=== PATIENT | male | born 1965 | race Caucasian/White ===

== ENCOUNTER 2016-05-18 16:59 | Inpatient (IN) | payer BC ==
[2016-05-18] MEDS ORDERED: Sodium Chloride 0.9% 10 ML Syringe FLUSH PRN (18:46)
[2016-05-18] MEDS ORDERED: Ondansetron 4 MG/2 ML SDV IV PRN (18:46)
--- NOTE | 2016-05-18 18:46 | PCM.HP ---
H&P History of Present Illness - General Date of Service: 05/18/16 Source of Information: Patient History Limitations: Reports: No limitations - History of Present Illness Initial Comments - Free Text/Narative: This is a 51-year-old male patient is having dyspnea on exertion. This is been going on for about 2-3 weeks. He initially had a syncopal episode and was seen in the ER. He was diagnosed with pneumonia and then sent home on Levaquin for 10 days. He followed up with Dr. Barrera and some diarrhea. He states his breathing was now better. He saw Dr. Mendoza today and his hemoglobin of 6.9. Patient denies chest pain. He states he has a history of colitis and had a colonoscopy 2 years ago. He states he has had some very dark stools but no melena. He states he also has some pain in his right upper quadrant at times. Food makes it feel better. He takes ibuprofen, Aleve and Tylenol rotating every day for arthritis. Denies Pain Score (Numeric/FACES): 0 - Related Data Allergies/Adverse Reactions: Allergies Allergy/AdvReac Type Severity Reaction Status Date / Time erythromycin base Allergy Fever Verified 06/07/14 19:51 Home Medications: Home Meds Levofloxacin [Levaquin] 500 mg PO Q24H #9 tablet 04/19/16 [Rx] Past Medical History HEENT History: Reports: None Cardiovascular History: Reports: None Respiratory History: Reports: Sleep apnea Gastrointestinal History: Reports: Other (see below) Other Gastrointestinal History: Hx: Colitis Genitourinary History: Reports: None Musculoskeletal History: Reports: Arthritis Endocrine/Metabolic History: Reports: Obesity/BMI 30+ - Past Surgical History Head Surgeries/Procedures: Reports: None HEENT Surgical History: Reports: Adenoidectomy Respiratory Surgical History: Reports: None GI Surgical History: Reports: Colonoscopy Male Surgical History: Reports: Vasectomy Endocrine Surgical History: Reports: None Musculoskeletal Surgical History: Reports: None Dermatological Surgical History: Reports: None Social & Family History - Family History Cardiac: Reports: High cholesterol Musculoskeletal: Reports: Arthritis Oncologic: Reports: Leukemia - Tobacco Use Smoking Status *Q: Never Smoker Second Hand Smoke Exposure: No - Caffeine Use Caffeine Use: Reports: Coffee - Alcohol Use Days Per Week of Alcohol Use: 1 Number of Drinks Per Day: 1 Total Drinks Per Week: 1 - Recreational Drug Use Recreational Drug Use: No H&P Review of Systems - Review of Systems: Review Of Systems: See Below General: Reports: no symptoms HEENT: Reports: no symptoms Pulmonary: Reports: shortness of breath. Denies: cough, sputum, hemoptysis Cardiovascular: Reports: no symptoms Gastrointestinal: Reports: Abdominal pain, Black stool. Denies: Nausea Genitourinary: Reports: no symptoms Musculoskeletal: Reports: shoulder pain Skin: Reports: no symptoms Psychiatric: Reports: no symptoms Neurological: Reports: no symptoms Hematologic/Lymphatic: Reports: no symptoms Immunologic: Reports: no symptoms Exam - Exam Exam: See Below - Vital Signs Vital Signs: Last Vital Signs Temp 97.3 F 05/18/16 17:33 Pulse 100 05/18/16 17:33 Resp 20 05/18/16 17:33 BP 150/94 H 05/18/16 17:33 Pulse Ox 97 05/18/16 17:33 Weight: 319 lb - Exam General: alert, oriented, cooperative HEENT: PERRLA, Conjunctiva clear, EACs clear, EOMI, Hearing intact, Mucosa moist & pink, Posterior pharynx clear, TMs clear Neck: supple, trachea midline Lungs: Clear to auscultation, Normal respiratory effort. No: Crackles, Rales, Rhonchi Cardiovascular: regular rate, regular rhythm, normal S1, normal S2. No: systolic murmur, diastolic murmur Abdomen: normal bowel sounds, soft. No: organomegaly, guarding, rigidity, rebound, tenderness Rectal (Males) Exam: Normal exam, Normal rectal tone, Prostate normal, Other ( Guaiac pending) Back Exam: normal inspection, full range of motion, NT Extremities: normal inspection. No: edema Skin: warm, dry, intact Neurological: strength equal bilateral, normal speech, normal tone Neuro Extensive - Mental Status: alert, oriented x3, normal mood/affect, normal cognition Neuro Extensive - Motor, Sensory, Reflexes: normal gait, normal reflexes Psychiatric: alert, normal affect, normal mood *Q Meaningful Use (ADM) - VTE *Q VTE Criteria *Q: - Stroke *Q Stroke Criteria *Q: - AMI *Q AMI Criteria *Q: - Problem List (1) Upper GI bleed SNOMED Code(s): 89562169 ICD Code: K92.2 - GASTROINTESTINAL HEMORRHAGE, UNSPECIFIED Status: Acute Current Visit: Yes (2) Arthritis SNOMED Code(s): 8322932, 041981839 ICD Code: M19.90 - UNSPECIFIED OSTEOARTHRITIS, UNSPECIFIED SITE Status: Acute Current Visit: Yes Problem List Initiated/Reviewed/Updated: Yes Assessment/Plan Comment:: 1. Admit inpatient. 2. Await guaiac test. 3. Clear liquids and n.p.o. after midnight. 4. Discussed pros and cons and side effects of blood transfusion. He wants to go ahead with the blood transfusions. Given 2 units RBCs packed. 5. IV with normal saline 75 mL an hour. 6. Surgical consult. 7. IV proton experience 8. Hold all nonsteroidal anti-inflammatories. 6. Recheck CBC in the a.m.
[2016-05-18] MEDS ORDERED: Sodium Chloride 0.9% 250 ML IV SCH (19:00)
[2016-05-18] MEDS ORDERED: Pantoprazole 40 MG Vial IVPUSH SCH (19:00)
[2016-05-18] MEDS ORDERED: Sodium Chloride 0.9% 1,000 ML IV ONE (21:26)
--- NOTE | 2016-05-18 21:43 | PCM.OPNOTE ---
- General Post-Op/Procedure Note Date of Surgery/Procedure: 05/18/16 Operative Procedure(s): EGD with Biopsy Findings: Acute but not actively bleeding duodenal ulcer Moderate Reflux Esophagitis Pre Op Diagnosis: Anemia Post-Op Diagnosis: Duodenal Ulcer. Reflux Esophagitis Anesthesia Technique: MAC Primary Surgeon: Mariano Wyman Pathology: Biopsies of Duodenum and Gastric Antrum Output, Urine Amount: 0 EBL in mLs: 3 Complications: None Condition: Good
[2016-05-18] MEDS ORDERED: Propofol 200 MG/20 ML SDV IV ONE (21:50)
[2016-05-18] MEDS ORDERED: Midazolam 1 MG/ML 2 ML SDV IV ONE (21:50)
[2016-05-18] MEDS ORDERED: Lidocaine 2% 100 MG/5 ML Syringe IVPUSH ONE (21:50)
--- NOTE | 2016-05-19 01:28 | CONS ---
DATE OF CONSULTATION: 05/18/2016 PHYSICIAN REQUESTING CONSULT: Can Sandoval MD. HISTORY OF PRESENT ILLNESS: This is a 51-year-old male was admitted today with a history of a shortness of breath with exertion. He is noted to have a low hemoglobin of 7.3. He has not seen any blood in his stools recently, although does have a history of intermittent dark stools. Approximately 4 weeks ago, the patient's hemoglobin was 10.7. He does have a history of having had colonoscopy about 2 years ago. At which time, he was told he had colitis. His only previous surgery was an appendectomy. ALLERGIES: The patient reports allergies to erythromycin. He has a history of arthritis, colitis, and sleep apnea. FAMILY HISTORY: Notable for leukemia. In order to evaluate the patient for his anemia, upper endoscopy is planned. I have discussed the proposed upper endoscopic procedure with the patient. I reviewed with him the expected course of the operation and he agrees to proceed accepting the risks. This will be scheduled tonight. Additional workup will depend on the patient's clinical course and the findings on upper endoscopy. /[id number] RANJAN/RAYO MTDNathan
--- NOTE | 2016-05-19 01:38 | OR ---
DATE OF OPERATION: 05/18/2016 SURGEON: Mariano Wyman MD PREOPERATIVE DIAGNOSIS: Anemia. POSTOPERATIVE DIAGNOSES: Duodenal ulcer and reflux esophagitis. OPERATION PERFORMED: Esophagogastroduodenoscopy with biopsy. INDICATIONS FOR SURGERY: This 51-year-old male who was admitted with anemia and with the hemoglobin of 7.3. This is a significant drop over the last month. Diagnostic upper endoscopy is planned. FINDINGS: No active bleeding is seen during the exam. The patient does have an acute ulcer in the second portion of the duodenum. It is causing some edema of the mucosa in this area, but is not obstructing the lumen. The ulcer has a clean white base, but is not actively bleeding at this time. It is estimated at 7-mm in size. The gastric mucosa appears normal. The patient does have a moderate degree of reflux esophagitis near the GE junction, but without active bleeding. PROCEDURE IN DETAIL: The patient was taken to the procedure room. He was given intravenous sedation, and with him in the left lateral decubitus position, the esophagus was intubated with the Olympus gastroscope. This was carefully advanced under direct visualization through the esophagus, stomach, and into the duodenum where examination to the fourth portion was performed. During examination of the duodenum, the above-described ulcer is identified. Biopsies of the duodenal mucosa near the ulcer are taken. No evidence of complicating process was noted at this level. The scope was withdrawn back up into the stomach, where full examination, including retroflexed examination of the fundus was performed. Biopsies of the antrum were taken to rule out H. pylori. The GE junction and esophagus were then reexamined as the scope was withdrawn. Once the examination was completed, the scope was removed and the patient was taken from the procedure room in satisfactory condition. ESTIMATED BLOOD LOSS: 3 mL. COMPLICATIONS: None. PROGNOSIS: Good. /[id number] RANJAN/RAYO ERAZO
[2016-05-19 08:02] VITALS: BP 137/83
--- NOTE | 2016-05-19 08:04 | PCM.PN ---
- General Info Date of Service: 05/19/16 Admission Dx/Problem (Free Text): Patient is without concerns. He states he was able to walk to the bathroom without shortness of breath. He denies dizziness. He denies melena or abdominal pain today. - Patient Data Vitals - most recent: Last Vital Signs Temp 98.7 F 05/19/16 08:00 Pulse 88 05/19/16 08:00 Resp 20 05/19/16 08:00 BP 137/83 05/19/16 08:00 Pulse Ox 98 05/19/16 08:00 Weight - most recent: 319 lb I&O - last 24 hours: Intake & Output 05/18/16 05/19/16 05/19/16 22:59 06:59 14:59 Intake Total 0 1125 Output Total 0 600 Balance 0 525 Lab Results last 24 hrs: Laboratory Results - last 24 hr 05/18/16 05/18/16 05/18/16 Range/Units 19:00 19:00 19:00 WBC (4.5-12.0) X10-3/uL RBC (4.30-5.75) x10(6)uL Hgb 7.3 L D (11.5-15.5) g/dL Hct 19.8 L* D (30.0-51.3) % MCV (80-96) fL MCH (27.7-33.6) pg MCHC (32.2-35.4) g/dL RDW (11.5-15.5) % Plt Count (125-369) X10(3)uL MPV (7.4-10.4) fL Neut % (Auto) (46-82) % Lymph % (Auto) (13-37) % [place] % (Auto) (4-12) % Eos % (Auto) (1.0-5.0) % Baso % (Auto) (0-2) % Neut # (1.6-8.3) # Lymph # (0.6-5.0) # [place] # (0.0-1.3) # Eos # (0.0-0.8) # Baso # (0.0-0.2) # PT 11.0 (8.7-11.1) INR 1.09 (0.89-1.13) APTT 24.5 (24.4-33.2) SECONDS Blood Type O POSITIVE Gel Antibody Screen Negative Crossmatch See Detail 05/19/16 Range/Units 06:25 WBC 12.0 (4.5-12.0) X10-3/uL RBC 2.97 L (4.30-5.75) x10(6)uL Hgb 7.9 L (11.5-15.5) g/dL Hct 24.3 L (30.0-51.3) % MCV 81.9 (80-96) fL MCH 26.7 L (27.7-33.6) pg MCHC 32.6 (32.2-35.4) g/dL RDW 21.7 H (11.5-15.5) % Plt Count 283 (125-369) X10(3)uL MPV 8.9 (7.4-10.4) fL Neut % (Auto) 82.6 H (46-82) % Lymph % (Auto) 9.2 L (13-37) % [place] % (Auto) 6.8 (4-12) % Eos % (Auto) 1 (1.0-5.0) % Baso % (Auto) 0 (0-2) % Neut # 10.0 H (1.6-8.3) # Lymph # 1.1 (0.6-5.0) # [place] # 0.8 (0.0-1.3) # Eos # 0.1 (0.0-0.8) # Baso # 0.0 (0.0-0.2) # PT (8.7-11.1) INR (0.89-1.13) APTT (24.4-33.2) SECONDS Blood Type Gel Antibody Screen Crossmatch Rishi Results last 24 hrs: Microbiology 05/18/16 18:35 Stool Occult Blood (RISHI) - Final Stool / Feces NEGATIVE OCCULT BLOOD Med Orders - Current: Current Medications Sodium Chloride (Normal Saline) 250 mls @ 100 mls/hr IV ASDIRECTED [facility] Last Admin: 05/18/16 19:38 Dose: 100 mls/hr Ondansetron HCl (Zofran) 4 mg IV Q4H PRN PRN Reason: Nausea/Vomiting Pantoprazole Sodium (Protonix Iv) 40 mg IVPUSH Q24H [facility] Last Admin: 05/18/16 19:49 Dose: 40 mg Sodium Chloride (Saline Flush) 10 ml FLUSH ASDIRECTED PRN PRN Reason: Keep Vein Open Discontinued Medications Sodium Chloride (Normal Saline) 1,000 mls @ 100 mls/hr IV .BOLUS ONE Stop: 05/19/16 07:25 Last Admin: 05/18/16 22:15 Dose: 100 mls/hr - Exam General: alert, oriented, cooperative Abdomen: bowel sounds present, soft, no tenderness. No: rebound, guarding, tenderness, distension Extremities: no edema - Problem List & Annotations (1) Arthritis SNOMED Code(s): 3742544, 053756750 Code(s): M19.90 - UNSPECIFIED OSTEOARTHRITIS, UNSPECIFIED SITE Status: Acute Priority: Low Current Visit: Yes (2) Duodenal ulcer hemorrhage SNOMED Code(s): 08056837 Code(s): K26.4 - CHRONIC OR UNSPECIFIED DUODENAL ULCER WITH HEMORRHAGE Status: Acute Priority: High Current Visit: Yes - Problem List Review Problem List Initiated/Reviewed/Updated: Yes - My Orders Last 24 Hours: My Active Orders 05/18/16 18:46 Ambulate [RC] ASDIRECTED May Shower [RC] ASDIRECTED Up ad Joanna [RC] ASDIRECTED Ondansetron [Zofran] 4 mg IV Q4H PRN Sodium Chloride 0.9% [Saline Flush] 10 ml FLUSH ASDIRECTED PRN Peripheral IV Insertion Adult [OM.PC] Routine Resuscitation Status Routine 05/18/16 18:47 Patient Status [ADT] Routine Oxygen Therapy [RC] PRN VTE/DVT Education [RC] Per Unit Routine Vital Signs [RC] 00,04,08,12,16,20 05/18/16 18:49 Cardiac Monitoring [RC] QSHIFT Intake and Output [RC] 06,14,22 Sequential Compression Device [OM.PC] Per Unit Routine 05/18/16 18:52 Transfuse Red Blood Cells [COMM] Routine 05/18/16 18:53 Consult to Physician [CONS] Routine 05/18/16 18:57 Notify Provider Consults [RC] ASDIRECTED 05/18/16 19:00 Pantoprazole [Protonix IV] 40 mg IVPUSH Q24H Sodium Chloride 0.9% [Normal Saline] 250 ml IV ASDIRECTED 05/18/16 Dinner NPO Now [Nothing per Oral Now Diet] [DIET] - Plan Plan:: 1. EGD done last they shows duodenal alternates not actively bleeding. Hemoglobin is now 7.9. 2. Discharged on proton pump inhibitor, iron, Carafate. 3. Avoid nostril anti-inflammatories and alcohol. 4. Follow up Dr. Barrera 7-[address] Baker in 2 weeks.
--- NOTE | 2016-05-19 08:13 | PCM.DCSUM1 ---
Discharge Summary - Hospital Course Free Text/Narrative:: Hospital course-patient was admitted and 2 units of blood were ordered. A surgical consult was made with Dr. Stack in lieu of Dr. Baker leading for vacation. Dr. Stack to the EGD that showed duodenal ulcer that was not actively bleeding. 2 units of packed RBCs were given. Hemoglobin went from 6.9 -7.9. Patient felt much better. No signs of active bleeding so discharged to home on Protonix, Carafate, iron twice a day. Patient was instructed to hold nonsteroidal anti-inflammatories and alcohol. Use Tylenol for joint aches. Brief History: This is a 51-year-old male patient is having dyspnea on exertion. This is been going on for about 2-3 weeks. He initially had a syncopal episode and was seen in the ER. He was diagnosed with pneumonia and then sent home on Levaquin for 10 days. He followed up with Dr. Barrera and some diarrhea. He states his breathing was now better. He saw Dr. Mendoza today and his hemoglobin of 6.9. Patient denies chest pain. He states he has a history of colitis and had a colonoscopy 2 years ago. He states he has had some very dark stools but no melena. He states he also has some pain in his right upper quadrant at times. Food makes it feel better. He takes ibuprofen, Aleve and Tylenol rotating every day for arthritis. - Discharge Data Discharge Date: 05/19/16 Discharge Disposition: Home, Self-Care 01 Condition: Good - Discharge Diagnosis/Problem(s) (1) Arthritis SNOMED Code(s): 7667182, 538447021 ICD Code: M19.90 - UNSPECIFIED OSTEOARTHRITIS, UNSPECIFIED SITE Status: Acute Priority: Low Current Visit: Yes (2) Duodenal ulcer hemorrhage SNOMED Code(s): 54066496 ICD Code: K26.4 - CHRONIC OR UNSPECIFIED DUODENAL ULCER WITH HEMORRHAGE Status: Acute Priority: High Current Visit: Yes - Patient Summary/Data Operative Procedure(s) Performed: EGD with Biopsy Consults: Consultations 05/18/16 18:53 Consult to Physician [CONS] Routine Consulting Provider: Mariano Wyman Call Completed to Consulting Physician: Yes - Patient Instructions Diet: Regular Diet as Tolerated Activity: As Tolerated Driving: May Drive Today Showering/Bathing: May Shower Notify Provider of: Drainage Other/Special Instructions: 1. Recheck with Dr. Barrera in 7-10 days. 2. Recheck with Dr. Baker in 2-3 weeks. 3. No nonsteroidal anti-inflammatories or alcohol. 4. Patient may use Tylenol thousand milligrams 3 times a day when necessary for joint aches. - Discharge Plan Prescriptions/Med Rec: Ferrous Sulfate [Iron] 325 mg PO BID #60 tablet Pantoprazole Sodium [Protonix] 40 mg PO DAILY #30 tablet. Sucralfate [Carafate] 1 gm PO QIDACANDBED #120 ml Home Medications: Home Meds Ferrous Sulfate [Iron] 325 mg PO BID #60 tablet 05/19/16 [Rx] Pantoprazole Sodium [Protonix] 40 mg PO DAILY #30 tablet. 05/19/16 [Rx] Sucralfate [Carafate] 1 gm PO QIDACANDBED #120 ml 05/19/16 [Rx] Tadalafil [Cialis] 1 tab PO ASDIRECTED PRN 05/19/16 [History] Testosterone Cypionate 2 ml IM Q21D 05/19/16 [History] Patient Handouts: Esophagogastroduodenoscopy, Sequential Compression Device, Uvulitis - Discharge Summary/Plan Comment DC Time >30 min.: No - Patient Data Vitals - Most Recent: Last Vital Signs Temp 98.7 F 05/19/16 08:00 Pulse 88 05/19/16 08:00 Resp 20 05/19/16 08:00 BP 137/83 05/19/16 08:00 Pulse Ox 98 05/19/16 08:00 Weight - Most Recent: 319 lb I&O - Last 24 hours: Intake & Output 05/18/16 05/19/16 05/19/16 22:59 06:59 14:59 Intake Total 0 1125 Output Total 0 600 Balance 0 525 Lab Results - Last 24 hrs: Laboratory Results - last 24 hr 05/18/16 05/18/16 05/18/16 Range/Units 19:00 19:00 19:00 WBC (4.5-12.0) X10-3/uL RBC (4.30-5.75) x10(6)uL Hgb 7.3 L D (11.5-15.5) g/dL Hct 19.8 L* D (30.0-51.3) % MCV (80-96) fL MCH (27.7-33.6) pg MCHC (32.2-35.4) g/dL RDW (11.5-15.5) % Plt Count (125-369) X10(3)uL MPV (7.4-10.4) fL Neut % (Auto) (46-82) % Lymph % (Auto) (13-37) % [place] % (Auto) (4-12) % Eos % (Auto) (1.0-5.0) % Baso % (Auto) (0-2) % Neut # (1.6-8.3) # Lymph # (0.6-5.0) # [place] # (0.0-1.3) # Eos # (0.0-0.8) # Baso # (0.0-0.2) # PT 11.0 (8.7-11.1) INR 1.09 (0.89-1.13) APTT 24.5 (24.4-33.2) SECONDS Blood Type O POSITIVE Gel Antibody Screen Negative Crossmatch See Detail 05/19/16 Range/Units 06:25 WBC 12.0 (4.5-12.0) X10-3/uL RBC 2.97 L (4.30-5.75) x10(6)uL Hgb 7.9 L (11.5-15.5) g/dL Hct 24.3 L (30.0-51.3) % MCV 81.9 (80-96) fL MCH 26.7 L (27.7-33.6) pg MCHC 32.6 (32.2-35.4) g/dL RDW 21.7 H (11.5-15.5) % Plt Count 283 (125-369) X10(3)uL MPV 8.9 (7.4-10.4) fL Neut % (Auto) 82.6 H (46-82) % Lymph % (Auto) 9.2 L (13-37) % [place] % (Auto) 6.8 (4-12) % Eos % (Auto) 1 (1.0-5.0) % Baso % (Auto) 0 (0-2) % Neut # 10.0 H (1.6-8.3) # Lymph # 1.1 (0.6-5.0) # [place] # 0.8 (0.0-1.3) # Eos # 0.1 (0.0-0.8) # Baso # 0.0 (0.0-0.2) # PT (8.7-11.1) INR (0.89-1.13) APTT (24.4-33.2) SECONDS Blood Type Gel Antibody Screen Crossmatch ALEJANDRO Results - Last 24 hrs: Microbiology 05/18/16 18:35 Stool Occult Blood (ALEJANDRO) - Final Stool / Feces NEGATIVE OCCULT BLOOD Med Orders - Current: Current Medications Sodium Chloride (Normal Saline) 250 mls @ 100 mls/hr IV ASDIRECTED [facility] Last Admin: 05/18/16 19:38 Dose: 100 mls/hr Ondansetron HCl (Zofran) 4 mg IV Q4H PRN PRN Reason: Nausea/Vomiting Pantoprazole Sodium (Protonix Iv) 40 mg IVPUSH Q24H [facility] Last Admin: 05/18/16 19:49 Dose: 40 mg Sodium Chloride (Saline Flush) 10 ml FLUSH ASDIRECTED PRN PRN Reason: Keep Vein Open Discontinued Medications Sodium Chloride (Normal Saline) 1,000 mls @ 100 mls/hr IV .BOLUS ONE Stop: 05/19/16 07:25 Last Admin: 05/18/16 22:15 Dose: 100 mls/hr *Q Meaningful Use (DIS) - VTE *Q VTE Criteria *Q: - Stroke *Q Stroke Criteria *Q: - AMI *Q AMI Criteria *Q:
[2016-05-19] MEDS ORDERED: Furosemide 20 MG/2 ML VIAL IVPUSH ONE (13:00)
== END 2016-05-19 09:20 | disposition home or self-care (01) | DRG 241 ==
LOC: FB.MS 17:18 → OBSVTOIN 18:47 → FB.MS 18:47
PROVIDERS: ADMIT Family Medicine; ATTEND Family Medicine
PROC: 0DB68ZX Excision of Stomach, Via Natural or Artificial Opening Endoscopic, Diagnostic (ICD-10-PCS; principal; 2016-05-18)
PROC: 30233N1 Transfusion of Nonautologous Red Blood Cells into Peripheral Vein, Percutaneous Approach (ICD-10-PCS; 2016-05-18)
PROC: 30233N1 Transfusion of Nonautologous Red Blood Cells into Peripheral Vein, Percutaneous Approach (ICD-10-PCS; 2016-05-19)
DX: K26.4 Chronic or unspecified duodenal ulcer with hemorrhage (principal); D50.0 Iron deficiency anemia secondary to blood loss (chronic); K21.0 Gastro-esophageal reflux disease with esophagitis; M19.90 Unspecified osteoarthritis, unspecified site; G47.30 Sleep apnea, unspecified; Z87.19 Personal history of other diseases of the digestive system; Z88.1 Allergy status to other antibiotic agents; E66.9 Obesity, unspecified; Z68.30 Body mass index [BMI] 30.0-30.9, adult
CPT/HCPCS: 36415; 36430; 82272; 85014; 85018; 85025; 85610; 85730; 86850; 86900; 86901; 86920; 86922; 88305; 88341; 88342; C9113; J2250; J2704; J7040; J7050; P9016